=== PATIENT | female | born 1955 | race Caucasian/White ===

== ENCOUNTER 2018-07-15 14:11 | Outpatient (CLI) | payer BC ==
--- NOTE | 2018-07-29 18:11 | Mammography Report ---
Reason: ROUTINE MAMMO Procedure Date: 07/15/2018 Accession Number: [id number] / [id number] Procedure: NORBERTO - Screening Mammo w/Kee CPT Code: FULL RESULT: EXAM: Screening Mammo w/Kee DATE: 07/15/2018 3:32 PM CLINICAL HISTORY: 62-year-old nulliparous female with history of lumpectomy with benign pathology in the left breast and family history of breast cancer in the mother at age 50. TECHNIQUE: Bilateral CC and MLO views were obtained. COMPARISON: 09/22/2016, 01/16/2015, 01/19/2014. FINDINGS: The breasts demonstrate heterogeneously dense fibroglandular parenchyma bilaterally. Postsurgical changes are seen in the left breast. Typically benign coarse calcifications are seen in the right breast. No suspicious masses, clustered microcalcifications, or regions of architectural distortion are identified. IMPRESSION: Benign findings RECOMMENDATION: Routine annual screening unless otherwise clinically indicated. BIRADS CATEGORY 2: Benign findings STANDARD QUALIFYING STATEMENTS: 1. This examination was not reviewed with the aid of Computer-Aided Detection (CAD). 2. A negative or benign imaging report should not delay biopsy if clinically suspicious findings are present. Consider surgical consultation if warrented. More than 5% of cancers are not identified by imaging. 3. Dense breasts may obscure an underlying neoplasm. 4. This examination was reviewed with the aid of 3D imaging (tomography).
== END 2018-07-15 14:12 | disposition home or self-care (01) ==
LOC: DI 14:11
DX: Z12.31 Encounter for screening mammogram for malignant neoplasm of breast (principal); Z80.3 Family history of malignant neoplasm of breast
CPT/HCPCS: 77063; 77067

== ENCOUNTER 2019-08-07 12:14 | Outpatient (CLI) | payer MEDICARE, BC ==
--- NOTE | 2019-08-07 13:16 | Mammography Report ---
Reason: SCREENING MAMMO Procedure Date: 08/07/2019 Accession Number: [id number] / [id number] Procedure: NORBERTO - Screening Mammo w/Kimberley CPT Code: FULL RESULT: EXAM: Screening Mammo w/Kimberley DATE: 08/07/2019 12:52 PM CLINICAL HISTORY: Screening TECHNIQUE: (B) - Bilateral CC and MLO views were obtained. COMPARISON: 07/15/2018, 09/22/2016, 01/16/2015 PARENCHYMAL PATTERN: (D) - The breasts demonstrate heterogeneously dense fibroglandular parenchyma bilaterally. FINDINGS: There is an ovoid single view breast asymmetry in the left breast localized to the lower outer quadrant and seen best on CC kimberley slice. otherwise, there is a are no suspicious masses, calcifications, or areas of distortion. IMPRESSION: Incomplete examination. BI-RADS category 0. RECOMMENDATION: (ADDMU) - Additional views using both Mammography and Ultrasound recommended. BI-RADS CATEGORY: (0) - Incomplete Examination - need additional evaluation. STANDARD QUALIFYING STATEMENTS: 1. This examination was not reviewed with the aid of Computer-Aided Detection (CAD). 2. A negative or benign imaging report should not preclude biopsy if clinically suspicious findings are present. 3. Dense breasts may obscure an underlying neoplasm. 4. This examination was reviewed with the aid of 3D breast imaging (tomosynthesis).
== END 2019-08-07 12:15 | disposition home or self-care (01) ==
LOC: DI 12:14
DX: Z12.31 Encounter for screening mammogram for malignant neoplasm of breast (principal); R92.8 Other abnormal and inconclusive findings on diagnostic imaging of breast
CPT/HCPCS: 77063; 77067

== ENCOUNTER 2019-08-15 08:28 | Outpatient (CLI) | payer MEDICARE, BC ==
--- NOTE | 2019-08-15 15:22 | Mammography Report ---
Reason: ABNORMAL MAMMOGRAM Procedure Date: 08/15/2019 Accession Number: [id number] / [id number] Procedure: [facility] - Diag Special Views Dig LT CPT Code: FULL RESULT: EXAM: Diag Special Views Dig LT, Breast Unilateral Limited DATE: 08/15/2019 8:54 AM CLINICAL HISTORY: Recall from screening for left breast finding. No reported personal history of breast cancer. Family history breast cancer in mother at age 50. TECHNIQUE: (L) - Left CC and ML views were obtained. Real-time ultrasound is performed. COMPARISON: 08/07/2019 through 09/16/2007 PARENCHYMAL PATTERN: (D) - The breasts demonstrate heterogeneously dense fibroglandular parenchyma bilaterally. FINDINGS: Left breast: Additional images confirm a 1 cm oval mass with partially obscured partially circumscribed margins in the mid lower outer left breast, representing finding recalled from screening. No suspicious calcifications or areas of distortion. Targeted ultrasound at 3:30 o'clock 4 cm from the nipple demonstrates an oval, hypoechoic, avascular 1 cm mass with parallel orientation and angular margins corresponding to the mammographic finding. IMPRESSION: Suspicious findings. BI-RADS category 4. Indeterminate solid mass 3:30 o'clock 4 cm from the nipple. RECOMMENDATION: (BIOPSY) - ultrasound-guided biopsy and marker placement is recommended. Biopsy scheduling was facilitated the time of this imaging appointment. BI-RADS CATEGORY: (4) - Suspicious. STANDARD QUALIFYING STATEMENTS: 1. This examination was not reviewed with the aid of Computer-Aided Detection (CAD). 2. A negative or benign imaging report should not preclude biopsy if clinically suspicious findings are present. 3. Dense breasts may obscure an underlying neoplasm. 4. This examination was reviewed with the aid of 3D breast imaging (tomosynthesis).
== END 2019-08-15 08:29 | disposition home or self-care (01) ==
LOC: DI 08:28
PROVIDERS: ATTEND Family Medicine
DX: R92.8 Other abnormal and inconclusive findings on diagnostic imaging of breast (principal); Z80.3 Family history of malignant neoplasm of breast
CPT/HCPCS: 76642

== ENCOUNTER 2019-08-24 10:23 | Outpatient (CLI) | payer MEDICARE, BC ==
[~2019-08-24 10:23] MED LIST: BUFFERED LIDOCAINE 10 ML SYRINGE ONE; BUPIVACAINE 0.5%-EPI 1:200000 PF 10 ML VIAL ONE
[2019-08-24] MEDS ORDERED: BUFFERED LIDOCAINE 10 ML SYRINGE ONE ×2 (11:08→11:10)
[2019-08-24] MEDS ORDERED: BUFFERED LIDOCAINE 10 ML SYRINGE IU ONE (12:29)
--- NOTE | 2019-08-24 15:28 | Ultrasound Report ---
Reason: ABN MAMMO - LT BREAST NODULE Procedure Date: 08/24/2019 Accession Number: [id number] / [id number] Procedure: US - Biopsy Breast Core CPT Code: FULL RESULT: PROCEDURE: Ultrasound-guided needle biopsy left breast mass. CLINICAL DATA: Targeted mass measuring 1 cm with irregular margins in the 3 o'clock axis of the left breast. Informed consent was obtained. Using standard aseptic technique, both 1% buffered lidocaine and Sensorcaine were injected into the left breast for local anesthesia. A small dante was made in the skin with a #11 blade. A 12-gauge [employer] vacuum-assisted device was used to obtain 3 specimens. A specialized biopsy marker clip was placed into the biopsy cavity under ultrasound guidance. The patient was taken to separate mammography machine and a two-view digital mammography was performed to verify the clip placement and any complications. The mammography showed concordant clip placement. The wound was dressed and ice applied. The patient was observed for approximately 15 minutes, then was discharged from diagnostic imaging Department in good condition following instructions on wound care and obtaining biopsy results. The patient is scheduled to receive the biopsy results from the referring physician. The tissue was sent for histologic analysis. IMPRESSION: Ultrasound-guided biopsy of the left breast. AN ADDENDUM WILL BE MADE TO THIS REPORT WHEN PATHOLOGY IS REVIEWED TO ESTABLISH CONCORDANCE.
== END 2019-08-24 10:24 | disposition home or self-care (01) ==
LOC: DI 10:23
PROVIDERS: ATTEND Family Medicine
DX: D24.2 Benign neoplasm of left breast (principal)
CPT/HCPCS: 19083

== ENCOUNTER 2019-09-15 09:18 | Outpatient (CLI) | payer MEDICARE, BC ==
--- NOTE | 2019-09-15 11:11 | DEXA Report ---
Reason: BONE DISORDER Procedure Date: 09/15/2019 Accession Number: [id number] / [id number] Procedure: DEX - Dexa Spine and/or Hip CPT Code: Final Report FULL RESULT: EXAM: Dexa Spine and/or Hip DATE: 09/15/2019 9:30 AM CLINICAL HISTORY: BONE DISORDER TECHNIQUE: Dual energy x-ray absorptiometry (DXA) was performed on a [employer] System. Regions measured are the AP Spine, femoral neck, and if needed forearm. COMPARISON: None. In accordance with the International Society for Clinical Densitometry (ISCD) guidelines, data from previous exams may be reanalyzed using current recommendations and techniques. This is done to allow a more accurate basis for comparison with the current study. FINDINGS: The data for the lumbar spine is as follows: BMD (g/cm/cm) T-SCORE Z-SCORE REGION L1 1.345 1.8 3.0 L2 1.359 1.3 2.6 L3 1.355 1.3 2.5 L4 TOTAL 1.5 2.8 NOTE: All evaluable vertebrae are used for classification The data for the hip is as follows: BMD (g/cm/cm) T-SCORE Z-SCORE REGION Neck 0.789 -1.8 -0.5 TOTAL 0.949 -0.5 0.5 NOTE: The femoral neck or total proximal femur, whichever is lowest, is used for classification. IMPRESSION: THE WHO CLASSIFICATION BASED ON THE INTERNATIONAL REFERENCE STANDARD IS OSTEOPENIA. THE FRACTURE RISK IS INCREASED. RECOMMENDATION: Patients with diagnosis of osteoporosis or osteopenia should have regular bone mineral density assessment. For those eligible for Medicare, routine testing is allowed once every 2 years. Testing frequency can be increased for patients who have rapidly progressing disease or for those who are receiving medical therapy to restore bone mass. COMMENT: World Health Organization (WHO) definitions for osteoporosis and osteopenia: NORMAL BMD: T-score at -1.0 or higher, fracture risk is low OSTEOPENIA BMD: T-score between -1.0 and -2.5, fracture risk is increased. OSTEOPOROSIS BMD: T-score at -2.5 or lower, fracture risk is high. National Osteoporosis Foundation recommends: 1. Obtain adequate dietary calcium (at least 1200 mg per day) and vitamin D (400-800 international units per day). 2. Participate, as appropriate, in regular weightbearing and muscle-strengthening exercise. 3. Avoid tobacco use and reduce alcohol and caffeine intake. 4. For more detailed information see the website at www.NOF.org.
== END 2019-09-15 09:19 | disposition home or self-care (01) ==
LOC: DI 09:18
PROVIDERS: ATTEND Family Medicine
DX: M85.88 Other specified disorders of bone density and structure, other site (principal)
CPT/HCPCS: 77080

== ENCOUNTER 2020-08-30 10:10 | Outpatient (CLI) | payer MEDICARE, BC ==
--- NOTE | 2020-09-02 16:25 | Mammography Report ---
BILATERAL DIGITAL SCREENING MAMMOGRAM 3D/2D: 08/30/2020 CLINICAL: Routine screening. Comparison is made to exams dated: 08/24/2019 mammogram, 08/24/2019 ultrasound biopsy, 08/15/2019 ult rasound, 08/15/2019 mammogram, 08/07/2019 mammogram, and 07/15/2018 mammogram - [facility]. The tissue of both breasts is heterogeneously dense. This may lower the sensitivity of mammogra phy. There are benign calcifications in the left breast. There also is a biopsy clip in the left breast. No significant masses, calcifications, or other findings are seen in either breast. There has been no significant interval change. IMPRESSION: BENIGN There is no mammographic evidence of malignancy. A 1 year screening mammogram is recommended. This exam was interpreted at Station ID: [id number]. NOTE: For mammograms, a report in lay terms will be sent to the patient. Approximately 15% of breast malignancies will not be visualized mammographically. In the management of a palpable breast mass, a negative mammogram must not discourage biopsy of a clinically suspicious lesion. Electronically Signed By: Dee beard/zeferino:08/30/2020 11:30:12 ACR BI-RADS Category 2: Benign Finding(s) 3342F PARENCHYMAL PATTERN: (D) - The breast(s) demonstrate(s) heterogeneously dense fibroglandular parshaniay lianet. BI-RADS CATEGORY: (2) - 2 RECOMMENDATION: (ANNUAL) - Recommend routine annual screening mammography. [id number] 1 year screening LATERALITY: (B)
== END 2020-08-30 10:11 | disposition home or self-care (01) ==
LOC: DI 10:10
DX: Z12.31 Encounter for screening mammogram for malignant neoplasm of breast (principal)
CPT/HCPCS: 77063; 77067

== ENCOUNTER 2020-10-01 08:46 | Outpatient (CLI) | payer MEDICARE, BC ==
[2020-10-01 09:10] LABS: BASOPHILS # (AUTO) 0.1 10^3/uL (0.0-0.1); EOSINOPHILS # (AUTO) 0.2 10^3/uL (0.0-0.7); EOSINOPHILS % (AUTO) 3.9 %; HGB - HEMOGLOBIN 14.6 g/dL (12.0-16.0); LYMPHOCYTES # (AUTO) 2.6 10^3/uL (1.5-3.5); LYMPHOCYTES % (AUTO) 52.6 %; MEAN CORPUSCULAR HEMOGLOBIN 31.2 pg (27.0-31.0); MEAN CORPUSCULAR HGB CONC 33.5 g/dL (32.0-36.0); MEAN CORPUSCULAR VOLUME 93.2 fL (81.0-99.0); MEAN PLATELET VOLUME 9.9 fL (7.9-10.8); MONOCYTES # (AUTO) 0.5 10^3/uL (0.0-1.0); MONOCYTES % (AUTO) 9.2 %; NEUTROPHILS # (AUTO) 1.6 10^3/uL (1.5-6.6); NEUTROPHILS % (AUTO) 32.9 %; PLT - PLATELET COUNT 240 10^3/uL (130-450); RED BLOOD COUNT 4.68 10^6/uL (4.20-5.40); WHITE BLOOD COUNT 4.9 x10^3/uL (4.8-10.8)
[2020-10-01 09:29] LABS: ALBUMIN/GLOBULIN RATIO 1.3 (1.0-2.2); ALKALINE PHOSPHATASE 62 IU/L (42-121); ALT ALANINE AMINOTRANSFERASE 19 IU/L (10-60); AST ASPARTATE AMINOTRANSFERASE 24 IU/L (10-42); BILIRUBIN,TOTAL 0.8 mg/dL (0.2-1.0); BUN - BLOOD UREA NITROGEN 16 mg/dL (6-20); CALCIUM 9.3 mg/dL (8.5-10.3); CARBON DIOXIDE - CO2 27 mmol/L (21-32); CHLORIDE 103 mmol/L (101-111); CHOL/HDL RATIO 3.3 (<4.4); CHOLESTEROL 250 mg/dL; CREATININE 0.9 mg/dL (0.4-1.0); GLUCOSE 97 mg/dL (70-100); HDL CHOLESTEROL 75 mg/dL; LDL CHOLESTEROL,CALCULATED 160 mg/dL; LDL/HDL RATIO 2.1 (<4.4); SODIUM 139 mmol/L (135-145); VLDL CHOLESTEROL 15 mg/dL
[2020-10-02 12:31] LABS: HEPATITIS C ANTIBODY NON-REACTIVE (NON-REACTIVE)
== END 2020-10-01 08:47 | disposition home or self-care (01) ==
LOC: LAB 08:46
PROVIDERS: ATTEND Family Medicine
DX: E78.5 Hyperlipidemia, unspecified (principal); M89.9 Disorder of bone, unspecified; Z11.59 Encounter for screening for other viral diseases
CPT/HCPCS: 36415; 80053; 80061; 83721; 85025; 86803

== ENCOUNTER 2021-12-25 10:20 | Outpatient (CLI) | payer MEDICARE, BC ==
--- NOTE | 2021-12-26 07:21 | Mammography Report ---
BILATERAL DIGITAL SCREENING MAMMOGRAM 3D/2D: 12/25/2021 CLINICAL: Routine screening. Comparison is made to exams dated: 08/30/2020 mammogram, 08/24/2019 mammogram, 08/24/2019 ultrasound biopsy, 08/15/2019 ultrasound, 08/15/2019 mammogram, and 08/07/2019 mammogram - [facility]. The tissue of both breasts is heterogeneously dense. This may lower the sensitivity of mammog shiv. There are benign calcifications in the left breast. There also is a biopsy clip in the left breast. No significant masses, calcifications, or other findings are seen in either breast. There has been no significant interval change. IMPRESSION: BENIGN There is no mammographic evidence of malignancy. A 1 year screening mammogram is recommended. This exam was interpreted at Station ID: [id number]. NOTE: For mammograms, a report in lay terms will be sent to the patient. Approximately 15% of breast malignancies will not be visualized mammographically. In the management of a palpable breast mass, a negative mammogram must not discourage biopsy of a clinically suspicious lesion. Electronically Signed By: Dani Forman M.D., jr/zeferino:12/25/2021 15:55:24 ACR BI-RADS Category 2: Benign Finding(s) 3342F PARENCHYMAL PATTERN: (D) - The breast(s) demonstrate(s) heterogeneously dense fibroglandular parshaniay lianet. BI-RADS CATEGORY: (2) - 2 RECOMMENDATION: (ANNUAL) - Recommend routine annual screening mammography. [id number] 1 year screening LATERALITY: (B)
== END 2021-12-25 10:21 | disposition home or self-care (01) ==
LOC: DI.N 10:20
DX: Z12.31 Encounter for screening mammogram for malignant neoplasm of breast (principal)

== ENCOUNTER 2022-07-09 12:56 | Outpatient (CLI) | payer MEDICARE, BC | END 2022-07-09 12:57 | disposition home or self-care (01) | LOC: MAC.MOP 12:56 | PROVIDERS: ATTEND Family Medicine | DX: R00.2 Palpitations (principal) | CPT/HCPCS: 93246 ==

== ENCOUNTER 2022-07-24 10:30 | Outpatient (CLI) | payer MEDICARE, BC | END 2022-07-24 10:31 | disposition home or self-care (01) | LOC: MAC.MOP 10:30 | PROVIDERS: ATTEND Family Medicine | DX: I47.1 Supraventricular tachycardia (principal); I49.1 Atrial premature depolarization; I49.3 Ventricular premature depolarization | CPT/HCPCS: 93244 ==

== ENCOUNTER 2022-12-09 08:51 | Outpatient (CLI) | payer MEDICARE, BC ==
--- NOTE | 2022-12-10 12:41 | Mammography Report ---
BILATERAL DIGITAL SCREENING MAMMOGRAM 3D/2D WITH EXAGGERATED CC: 12/09/2022 CLINICAL: Routine screening. Mother with breast cancer. Comparison is made to exams dated: 12/25/2021 mammogram, 08/30/2020 mammogram, 08/24/2019 mammogram, 08/15/2019 mammogram, 08/07/2019 mammogram, and 07/15/2018 mammogram - [facility]. Both breasts are heterogeneously dense, which may obscure small masses (category c / 51-75% glandular tissue). There are benign calcifications in the left breast. There also is a biopsy clip in the left breast. No significant masses, calcifications, or other findings are seen in either breast. There has been no significant interval change. IMPRESSION: BENIGN There is no mammographic evidence of malignancy. A 1 year screening mammogram is recommended. This exam was interpreted at Station ID: [id number]. NOTE: For mammograms, a report in lay terms will be sent to the patient. Approximately 15% of breast malignancies will not be visualized mammographically. In the management of a palpable breast mass, a negative mammogram must not discourage biopsy of a clinically suspicious lesion. Electronically Signed By: Adair roland/zeferino:12/09/2022 17:29:27 ACR BI-RADS Category 2: Benign Finding(s) 3342F PARENCHYMAL PATTERN: (D) - The breast(s) demonstrate(s) heterogeneously dense fibroglandular kaitlyn martini. BI-RADS CATEGORY: (2) - 2 RECOMMENDATION: (ANNUAL) - Recommend routine annual screening mammography. [id number] 1 year screening LATERALITY: (B)
== END 2022-12-09 08:52 | disposition home or self-care (01) ==
LOC: DI 08:51
DX: Z12.31 Encounter for screening mammogram for malignant neoplasm of breast (principal); Z80.3 Family history of malignant neoplasm of breast

== ENCOUNTER 2023-09-13 15:08 | Outpatient (CLI) | payer MEDICARE, BC ==
--- NOTE | 2023-09-13 16:24 | DEXA Report ---
PROCEDURE: Dexa Spine and/or Hip INDICATIONS: POST MENOPAUSAL TECHNIQUE: Dual energy x-ray absorptiometry (DXA) was performed on a [employer] System. Regions measur ed are the AP Spine, femoral neck, and if needed forearm. COMPARISON: 09/15/2019 FINDINGS: Lumbar Spine: Bone Mineral Density 1.308 g/cm/cm,T score 1.1. Baseline. Left Femoral Neck: Bone Mineral Density 0.739 g/cm/cm, T score -2.1. Left Hip: Bone Mineral Density 0.935 g/cm/cm,T score -0.6. There has been no statistically significant change i n bone mineral density since the prior study. (T score greater or equal to -1.0: NORMAL) (T score from -1.1 to -2.4: OSTEOPENIA) (T score less than or equal to -2.5 to: OSTEOPOROSIS) Impression: By WHO criteria, this patient has low bone density (osteopenia). Baseline of the lumbar spine. No statistical interval change in bone minteral density of the hip. Patients with diagnosis of osteoporosis or osteopenia should have regular bone mineral density assess ment. For those eligible for Medicare, routine testing is allowed once every 2 years. Testing frequ ency can be increased for patients who have rapidly progressing disease or for those who are receivin g medical therapy to restore bone mass. Reviewed by: Roque Qureshi on 09/13/2023 4:22 PM PST Approved by: Roque Qureshi on 09/13/2023 4:22 PM PST Station ID: [id number]
== END 2023-09-13 15:09 | disposition home or self-care (01) ==
LOC: DI 15:08
PROVIDERS: ATTEND Nurse Practitioner Family
DX: M85.88 Other specified disorders of bone density and structure, other site (principal); Z78.0 Asymptomatic menopausal state

== ENCOUNTER 2023-09-21 08:00 | Outpatient (CLI) | payer MEDICARE, BC ==
--- NOTE | 2023-09-21 16:46 | XRAY Report ---
PROCEDURE: Knee 3 View LT INDICATIONS: LEFT KNEE PAIN TECHNIQUE: 3 views of the knee(s) were acquired. COMPARISON: 09/07/2023 FINDINGS: Bones: No visible acute or subacute fractures. Mild lateral compartment joint space loss and tricomp artment marginal spur formation. This is symmetric with the contralateral side. Soft tissues: No knee joint effusion. No suspicious soft tissue calcifications or masses. IMPRESSION: 1. No evidence of subacute fracture. 2. Symmetric mild osteoarthritis. Reviewed by: Leah Trevino MD on 09/21/2023 4:44 PM PST Approved by: Leah Trevino MD on 09/21/2023 4:44 PM PST Station ID: [id number]
== END 2023-09-21 23:59 | disposition home or self-care (01) ==
LOC: DI.WOS 08:00
PROVIDERS: ATTEND Physician Assistant Surgical
DX: M17.12 Unilateral primary osteoarthritis, left knee (principal)

== ENCOUNTER 2023-12-29 09:26 | Day surgery (SDC) | payer MEDICARE, BC ==
[2023-12-29] MEDS ORDERED: PROPOFOL 500 MG/50 ML 500 MG/50 ML VIAL ONE (09:33)
[2023-12-29] MEDS: LACTATED RINGERS 1,000 ML IV ONE ×2 (09:43→10:51)
--- NOTE | 2023-12-29 10:08 | ANESTHESIA ---
Pre-Anesthesia VS, & Labs - Diagnosis hx of polyps - Procedure colonoscopy Vital Signs: Temp Pulse Resp BP Pulse Ox O2 Flow Rate 36.6 C 78 16 118/84 H 97 12/29/23 09:33 12/29/23 09:33 12/29/23 09:33 12/29/23 09:33 12/29/23 09:33 Height: 5 ft 5 in Weight (kg): 69.9 kg Body Mass Index: 25.6 BMI Classification: Overweight - NPO >8 hours - Is Patient ?: No Home Medications and Allergies Niacinamide 500 mg PO BID 07/09/22 Vit D3/Vit K2/Calc Frutoborate [Move Free Ajcri-Jixlfa-H1-D3] 2,000 units PO DAILY 07/09/22 Allergies/Adverse Reactions: Allergies Allergy/AdvReac Type Severity Reaction Status Date / Time erythromycin base AdvReac Nausea Verified 12/29/23 10:07 morphine AdvReac Emesis Verified 09/07/23 12:41 Anes History & Medical History - Anesthetic History Anesthesia Complications: reports: No previous complications Family history of Anesthesia Complications: Denies Family history of Malignant Hyperthermia: Denies - Medical History Cardiovascular: reports: Other ("palpitations") Pulmonary: reports: None Gastrointestinal: reports: Colon polyps Urinary: reports: None Neuro: reports: None Musculoskeletal: reports: None Endocrine/Autoimmune: reports: None Blood Disorders: reports: None Skin: reports: None Smoking Status: Never smoker Psychosocial: reports: No issues indicated History of Cancer?: No - Surgical History General: reports: Colonoscopy Eyes Ears Nose Throat (EENT): reports: Tonsil/Adenoidectomy Gynecologic: reports: Hysterectomy Exam General: Alert, Oriented x3, Cooperative Dental: WNL Mouth Openin Fingerbreadth Neck Mobility: Normal Mallampati classification: I Thyromental Distance: 4-6 cm Respiratory: Lungs clear Cardiovascular: Regular rate Plan Anesthesia Type: General, Total IV Consent for Procedure(s) Verified and Reviewed: Yes Code Status: Attempt Resuscitation ASA classification: 2-Mild systemic disease Is this case an emergency?: No
[2023-12-29 11:04] VITALS: O2SAT 99
[2023-12-29 11:14] VITALS: BP 102/70
== END 2023-12-29 09:27 | disposition home or self-care (01) ==
LOC: SDS 09:26
PROVIDERS: ATTEND Surgery
DX: Z12.11 Encounter for screening for malignant neoplasm of colon (principal); Z86.010 Personal history of colon polyps
CPT/HCPCS: G0105; J7120

== ENCOUNTER 2024-01-04 14:14 | Outpatient (CLI) | payer MEDICARE, BC ==
--- NOTE | 2024-01-05 09:42 | Mammography Report ---
BILATERAL DIGITAL SCREENING MAMMOGRAM 3D/2D: 01/04/2024 CLINICAL: Routine screening. Comparison is made to exams dated: 12/09/2022 mammogram, 12/25/2021 mammogram, and 08/30/2020 mammogram - [facility]. Both breasts are heterogeneously dense, which may obscure small masses (category c / 51-75% glandular tissue). There are benign calcifications in the left breast. There also is a biopsy clip in the left breast. No significant masses, calcifications, or other findings are seen in either breast. There has been no significant interval change. IMPRESSION: BENIGN There is no mammographic evidence of malignancy. A 1 year screening mammogram is recommended. Based on the Tyrer Cuzick model (a risk assessment model) the patient's lifetime risk is 17.0% and he r 10 year risk is 11.0%. According to the ACR, ACS, and NCCN guidelines, an annual breast MRI exam al claude with mammogram is recommended if the patient's lifetime risk is 20% or greater. This exam was interpreted at Station ID: [id number]. NOTE: For mammograms, a report in lay terms will be sent to the patient. Approximately 15% of breast malignancies will not be visualized mammographically. In the management of a palpable breast mass, a negative mammogram must not discourage biopsy of a clinically suspicious lesion. Electronically Signed By: Walter watson/zeferino:01/04/2024 15:19:13 letter sent: No_Letter ACR BI-RADS Category 2: Benign Finding(s) 3342F PARENCHYMAL PATTERN: (D) - The breast(s) demonstrate(s) heterogeneously dense fibroglandular kaitlyn martini. BI-RADS CATEGORY: (2) - 2 Mammogram [id number] 1 year screening LATERALITY: (B)
== END 2024-01-04 14:15 | disposition home or self-care (01) ==
LOC: DI 14:14
DX: Z12.31 Encounter for screening mammogram for malignant neoplasm of breast (principal); R92.333 Mammographic heterogeneous density, bilateral breasts